=== PATIENT | male | born 1990 | race Caucasian/White ===

== ENCOUNTER 2019-05-12 15:56 | Emergency (ER) | payer MEDICAID ==
[~2019-05-12] VITALS: Ht 170.2 cm; Wt 57.4 kg
[2019-05-12 16:03] VITALS: Ht 170.2 cm; Wt 57.4 kg
[2019-05-12] MEDS ORDERED: KETOROLAC 30 MG INJ IV STA (16:22)
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
[2019-05-12] MEDS ORDERED: HYDROCODONE/APAP (5/325) TAB PO ONE (18:00)
[2019-05-12] MEDS ORDERED: NAPR-985 PO (18:09)
[2019-05-12 19:40] VITALS: BP 123/84; PULSE 109; RESP 18
== END 2019-05-12 19:47 | disposition home or self-care (01) ==
LOC: E/R 15:56
DX: R07.89 Other chest pain (principal)
CPT/HCPCS: 36415; 71045; 71120; 80048; 84484; 85025; 93005; 96372; J1885; Z7502; Z7610